=== PATIENT | male | born 1995 | race Caucasian/White ===

== ENCOUNTER 2017-07-23 14:10 | Emergency (ER) | payer BC, OTHER ==
[2017-07-23] MEDS ORDERED: SODIUM CHLORIDE 0.9% 1,000 ML IV STA ×2 (16:28)
[2017-07-23] MEDS ORDERED: ONDANSETRON 4 MG/2 ML VIAL IVP STA (16:28)
--- NOTE | 2017-07-23 16:41 | ED ---
Nausea/Vomiting/Diarrhea HPI - General Chief complaint: Nausea/Vomiting/Diarrhea Stated complaint: vomiting/weakness Time Seen by Provider: 07/23/17 15:49 Source: patient, RN notes reviewed, old records reviewed Mode of arrival: ambulatory Limitations: no limitations - History of Present Illness Initial comments: 22-year-old male presents emergency department today chief complaint of epigastric abdominal pain, nausea. He states that he's been having the symptoms for the past 3 days. He states that he has had some dark stool. No alcohol or drug use. He reports the emesis had some sharp pains in his jaw and feels like he has had an occasional hard time breathing. Patient reports that he has had no medical history. Patient denies any recent fever, chills, shortness of breath, chest pain, back pain, abdominal pain, nausea vomiting, numbness or tingling, dysuria or hematuria, constipation or diarrhea, headaches or visual changes, or any other current symptoms - Related Data Previous Rx's Medication Instructions Recorded Omeprazole 40 mg PO DAILY #15 capsule. 07/23/17 Ondansetron Odt [Zofran Odt] 4 mg PO Q8HR PRN #12 tab 07/23/17 Allergies Allergy/AdvReac Type Severity Reaction Status Date / Time No Known Allergies Allergy Verified 07/23/17 15:51 Review of Systems ROS Statement: Those systems with pertinent positive or pertinent negative responses have been documented in the HPI. ROS Other: All systems not noted in ROS Statement are negative. Past Medical History Additional Past Medical History / Comment(s): chronic back pain History of Any Multi-Drug Resistant Organisms: None Reported Past Surgical History: No Surgical Hx Reported Past Psychological History: No Psychological Hx Reported Smoking Status: Current every day smoker Past Alcohol Use History: Occasional Past Drug Use History: None Reported General Exam - General Exam Comments Initial Comments: 22-year-old male. Patient is well-appearing. Resting comfortably in bed. No acute distress. Limitations: no limitations General appearance: alert, in no apparent distress Head exam: Present: atraumatic, normocephalic, normal inspection Eye exam: Present: normal appearance, PERRL, EOMI. Absent: scleral icterus, conjunctival injection, periorbital swelling ENT exam: Present: normal exam, mucous membranes moist Neck exam: Present: normal inspection. Absent: tenderness, meningismus, lymphadenopathy Respiratory exam: Present: normal lung sounds bilaterally. Absent: respiratory distress, wheezes, rales, rhonchi, stridor Cardiovascular Exam: Present: regular rate, normal rhythm, normal heart sounds. Absent: systolic murmur, diastolic murmur, rubs, gallop, clicks GI/Abdominal exam: Present: soft, normal bowel sounds. Absent: distended, tenderness, guarding, rebound, rigid Course Vital Signs 07/23/17 14:21 Temperature 98.0 F Pulse Rate 90 Respiratory 20 Rate Blood Pressure 139/76 O2 Sat by Pulse 100 Oximetry Medical Decision Making - Medical Decision Making 22-year-old male process Ms. arm with nausea and epigastric abdominal pain. Some mild tenderness on exam. This time patient's labwork was reviewed and normal. EKG showed no significant abnormalities. Questionable conduction delay. Chest x-ray was normal. KUB is normal. Normal hemoglobin. He does have better after receiving a liter fluids and Zofran. Discussed patient could likely have gastritis with epigastric abdominal pain. We'll put him on Protonix and Zofran. Discussed PCP follow-up. All questions answered and return parameters were discussed. - Lab Data Result diagrams: 07/23/17 17:25 07/23/17 17:25 Lab Results 07/23/17 07/23/17 07/23/17 Range/Units 17:25 17:25 17:25 WBC 4.1 (3.8-10.6) k/uL RBC 5.02 (4.30-5.90) m/uL Hgb 16.0 (13.0-17.5) gm/dL Hct 46.3 (39.0-53.0) % MCV 92.3 (80.0-100.0) fL MCH 31.9 (25.0-35.0) pg MCHC 34.5 (31.0-37.0) g/dL RDW 12.8 (11.5-15.5) % Plt Count 261 (150-450) k/uL Neutrophils % 56 % Lymphocytes % 35 % Monocytes % 5 % Eosinophils % 2 % Basophils % 1 % Neutrophils # 2.3 (1.3-7.7) k/uL Lymphocytes # 1.4 (1.0-4.8) k/uL Monocytes # 0.2 (0-1.0) k/uL Eosinophils # 0.1 (0-0.7) k/uL Basophils # 0.0 (0-0.2) k/uL Sodium 141 (137-145) mmol/L Potassium 4.0 (3.5-5.1) mmol/L Chloride 104 (98-107) mmol/L Carbon Dioxide 25 (22-30) mmol/L Anion Gap 12 mmol/L BUN 9 (9-20) mg/dL Creatinine 0.67 (0.66-1.25) mg/dL Est GFR (CKD-EPI)AfAm >90 (>60 ml/min/1.73 sqM) Est GFR (CKD-EPI)NonAf >90 (>60 ml/min/1.73 sqM) Glucose 97 (74-99) mg/dL Calcium 9.5 (8.4-10.2) mg/dL Total Bilirubin 0.4 (0.2-1.3) mg/dL AST 30 (17-59) U/L ALT 39 (21-72) U/L Alkaline Phosphatase 54 (38-126) U/L Total Protein 6.8 (6.3-8.2) g/dL Albumin 4.3 (3.5-5.0) g/dL Amylase 58 (30-110) U/L Lipase 129 (23-300) U/L Urine Color Yellow Urine Appearance Clear (Clear) Urine pH 8.5 H (5.0-8.0) Ur Specific [place] 1.014 (1.001-1.035) Urine Protein Negative (Negative) Urine Glucose (UA) Negative (Negative) Urine Ketones Negative (Negative) Urine Blood Negative (Negative) Urine Nitrite Negative (Negative) Urine Bilirubin Negative (Negative) Urine Urobilinogen <2.0 (<2.0) mg/dL Ur Leukocyte Esterase Negative (Negative) 07/23/17 17:10 EKG shows sinus rhythm with sinus arrhythmia first-degree AV block. Left axis deviation. Our circular pattern in V1 suggesting right ventricular conduction only. Abnormal EKG noted. Ventricular rate 64 bpm. VT interval 212 ms. QRS duration 106. QT QTc is 400 412. No evidence of ST elevation. - Radiology Data Radiology results: report reviewed KUB is reviewed and negative for any acute process. Chest x-ray shows no abnormalities. Disposition Clinical Impression: Nausea & vomiting, Gastritis Disposition: HOME SELF-CARE Condition: Good Instructions: Acute Nausea and Vomiting (ED) Additional Instructions: Patient advised follow-up with primary care provider. Take the medication as prescribed for the abdominal pain and nausea. Return to the emergency department if any alarming signs or symptoms occur. Prescriptions: Omeprazole 40 mg PO DAILY #15 capsule. Ondansetron Odt [Zofran Odt] 4 mg PO Q8HR PRN #12 tab PRN Reason: Nausea Is patient prescribed a controlled substance at d/c from ED?: No If prescribed controlled substance>3 days was MAPS reviewed?: No When asked, does pt state using other controlled substances?: No Referrals: Leidy Mendez MD [Primary Care Provider] - 1-2 days Time of Disposition: 18:48
--- NOTE | 2017-07-23 18:24 | XR ---
EXAMINATION TYPE: XR KUB, 3 views DATE OF EXAM: 07/23/2017 COMPARISON: NONE HISTORY: Pain and nausea and weakness TECHNIQUE: Upright imaging of the abdomen and pelvis FINDINGS: The visualized lung bases and pleural spaces are negative. There is no pneumoperitoneum. No pneumatosis. The bowel gas pattern is normal. The soft tissues and skeletal structures of the abdomen and pelvis are unremarkable. IMPRESSION: NEGATIVE EXAMINATION.
--- NOTE | 2017-07-23 18:27 | XR ---
EXAMINATION: XR chest 2V DATE AND TIME: 07/23/2017 5:38 PM ORDERING PROVIDER: Ailyn Clemente CLINICAL INDICATION: pain TECHNIQUE: PA and lateral COMPARISON: None. DESCRIPTION: The lungs are clear. The pleural spaces are negative. The cardiac silhouette is not enlarged. The mediastinal and pleural silhouettes are unremarkable. The skeletal structures are intact without focal findings. The soft tissues are unremarkable. IMPRESSION: NO ACUTE PROCESS.
[2017-07-23 18:30] LABS: Basophils % (A) 1 %; Eosinophils # (A) 0.1 k/uL (0-0.7); Eosinophils % (A) 2 %; HCT 46.3 % (39.0-53.0); Lymphocytes # (A) 1.4 k/uL (1.0-4.8); Lymphocytes % (A) 35 %; MCH 31.9 pg (25.0-35.0); MCHC 34.5 g/dL (31.0-37.0); MCV 92.3 fL (80.0-100.0); Mean Platelet Volume 7.6; Monocytes # (A) 0.2 k/uL (0-1.0); Monocytes % (A) 5 %; Neutrophils # (A) 2.3 k/uL (1.3-7.7); Neutrophils % (A) 56 %; Platelet Count 261 k/uL (150-450); RBC 5.02 m/uL (4.30-5.90); RDW 12.8 % (11.5-15.5); WBC 4.1 k/uL (3.8-10.6)
[2017-07-23 18:31] LABS: Appearance,Urine Clear (Clear); Bilirubin,Urine Negative (Negative); Blood,Urine Negative (Negative); Color,Urine Yellow; Glucose,Urine (UA) Negative (Negative); Ketones,Urine Negative (Negative); Leukocyte Esterase,Urine Negative (Negative); Nitrite,Urine Negative (Negative); PH, Urine 8.5 (5.0-8.0); Protein,Urine Negative (Negative); Specific Gravity,Urine 1.014 (1.001-1.035); Urobilinogen,Urine <2.0 mg/dL (<2.0)
[2017-07-23 18:35] LABS: ALT 39 U/L (21-72); AST 30 U/L (17-59); Albumin 4.3 g/dL (3.5-5.0); Alkaline Phosphatase 54 U/L (38-126); Amylase 58 U/L (30-110); Anion Gap 12 mmol/L; Blood Urea Nitrogen 9 mg/dL (9-20); Calcium 9.5 mg/dL (8.4-10.2); Carbon Dioxide 25 mmol/L (22-30); Chloride 104 mmol/L (98-107); Glucose 97 mg/dL (74-99); Lipase 129 U/L (23-300); Sodium 141 mmol/L (137-145); Total Bilirubin 0.4 mg/dL (0.2-1.3); Total Protein 6.8 g/dL (6.3-8.2)
[2017-07-23 19:20] VITALS: BP 126/71; PULSE 56; RESP 18; TEMP 98.6
== END 2017-07-23 19:05 | disposition home or self-care (01) ==
LOC: EC 14:10
DX: K29.70 Gastritis, unspecified, without bleeding (principal); F17.200 Nicotine dependence, unspecified, uncomplicated
CPT/HCPCS: 36415; 93005; 80053; 82150; 83690; 85025; 81003; 71046; 74018; 99284; 96374; 96361 ×2; J2405